=== PATIENT | female | born 1955 | race Caucasian/White ===

== ENCOUNTER 2020-04-05 07:34 | Day surgery (SDC) | payer MEDICARE ==
[~2020-04-05] VITALS: Ht 162.6 cm; Wt 81.2 kg
[2020-04-05] MEDS ORDERED: VITAMIN D-40010 MCG PO (07:51)
[2020-04-05] MEDS ORDERED: SIMVASTATIN10 MG PO (07:51)
[2020-04-05] MEDS ORDERED: BUPROPION HCL150 M2 PO (07:51)
--- NOTE | 2020-04-05 09:12 | NUR ---
04/05/20 0912 Coco Arreola 0957 PATIENT ARRIVES TO PACU RESTING WITH EYES CLOSED, OPENS EYES WITH VERBAL STIMULI, BACK TO SLEEP WHEN NOT STIMULATED. RESP EVEN AND UNLABORED, NC AT 2 LITERS.
--- NOTE | 2020-04-06 06:22 | OR ---
[facility] [address], [place] [address] Signed DATE OF OPERATION: 04/05/2020 SURGEON: Rochelle Mccray MD PREOPERATIVE DIAGNOSIS: Personal history of colonic polyps. POSTOPERATIVE DIAGNOSIS: Unremarkable colonoscopy. PROCEDURE: Colonoscopy without biopsy. ESTIMATED BLOOD LOSS: None. INDICATIONS: Antonette is a 65-year-old female, who has undergone previous colonoscopies in 2008, 2011 and in 2013. 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 She also had multiple adenomatous polyps removed along with hyperplastic polyps. In the meantime, she has no lower GI complaints. There is no family history of colon cancer or polyps. In the office, I gave her a pamphlet on colonoscopy and we looked at that together along with the risks including, but not limited to gas bloating, crampy abdominal pain, bleeding, perforation requiring surgery, and missed diagnosis. We also discussed the need for IV conscious sedation, she had expressed understanding and wished to proceed. PROCEDURE NOTE: Antonette was taken into our endoscopy suite and placed in the left lateral decubitus position. She was given IV sedation with 8 mg of Versed and 175 mcg of fentanyl. A digital rectal exam was performed and this was unremarkable. The adult colonoscope was introduced and advanced under direct visualization of camera. It did loop in the left colon, so that took some time to push the camera in and out, apply abdominal compression and added additional sedation in order to get the camera to pass into the cecum itself. Interestingly, her cecum is up near the right subcostal margin. However, we could see the appendiceal orifice and the ileocecal valve quite readily. Her prep was excellent. The scope was then slowly withdrawn. She has no pathology throughout the entire colon or rectum. Upon retroflexion of scope, there was no additional pathology noted above the anal canal. After this, the gas was suctioned out and the colonoscope removed. Antonette tolerated the procedure quite well. Electronically Signed By: ROCHELLE MCCRAY MD 04/06/20 0622 PATIENT NAME: ANTONETTE GOTTI OPERATIVE REPORT DATE OF : 55 REPORT #: [id number] PHYSICIAN: ROCHELLE MCCRAY MD PCP: PAULA HOUGH REPORT IS CONFIDENTIAL AND NOT TO BE RELEASED WITHOUT AUTHORIZATION [address] [address] Signed RECOMMENDATIONS: Antonette can follow up in 5 years for a repeat colonoscopy due to her personal history. MD LISS Gillis/KALEE /[id number] cc: MD Paula Gillis Copies: ROCHELLE MCCRAY MD, JENNIFER C ~ Electronically Signed By: ROCHELLE MCCRAY MD 04/06/20 0622 PATIENT NAME: ANTONETTE GOTTI OPERATIVE REPORT DATE OF : 55 REPORT #: [id number] PHYSICIAN: ROCHELLE MCCRAY MD PCP: PAULA HOUGH REPORT IS CONFIDENTIAL AND NOT TO BE RELEASED WITHOUT AUTHORIZATION
== END 2020-04-05 09:45 | disposition home or self-care (01) ==
LOC: OPS 07:34 → DS 07:34 → OPS 09:00
PROVIDERS: ATTEND Colon & Rectal Surgery
PROC: 0DJD8ZZ Inspection of Lower Intestinal Tract, Via Natural or Artificial Opening Endoscopic (ICD-10-PCS; principal; 2020-04-05 09:00)
DX: Z12.11 Encounter for screening for malignant neoplasm of colon (principal); E78.00 Pure hypercholesterolemia, unspecified; F17.210 Nicotine dependence, cigarettes, uncomplicated; Z86.010 Personal history of colon polyps; Z90.49 Acquired absence of other specified parts of digestive tract; Z79.899 Other long term (current) drug therapy
CPT/HCPCS: 99153; G0500; J2250; J3010